=== PATIENT | female | born 2000 | race Two or more races ===

== ENCOUNTER → 2025-03-17 | Outpatient (CLI) | payer OTHER, SELFPAY ==
--- NOTE | 2025-03-17 16:15 | XR_ITS ---
Examination: Breast ultrasound, unilateral, left complete Date and time of exam: March 17, 2025 1611 hours INDICATIONS: Palpable lump left breast note is beginning to use ago, 4.5 cm mass outer quadrant left breast on mammogram December 01, 2023 Technique: Real-time obrien scale ultrasonographic imaging performed left breast including all 4 quadrants as well as nipple retroareolar and axillary region. Findings: 4:00 oval mass lobular margins 3.3 x 1.5 x 3.1 cm IMPRESSION: BI-RADS Category 3: Probably benign findings, fibroadenoma left breast 4:00 position, recommend 3-6 month follow-up left breast sonography
== END | disposition home or self-care (01) ==
LOC: CDIM 15:52
PROVIDERS: Referring Provider Family Medicine; Visit Provider Family Medicine
DX: D24.2 Benign neoplasm of left breast (principal); R92.332 Mammographic heterogeneous density, left breast
CPT/HCPCS: 76641